=== PATIENT | female | born 1960 | race Caucasian/White ===

== ENCOUNTER → 2017-08-04 | Outpatient (CLI) | payer BC, OTHER ==
[~2017-08-04] MED LIST: CA C1TAB83 PO; CALC-913 PO; ESCI10TA PO; EST30C VG; IBUP-1773 PO; LANS30CA43 PO; MELO15TA39 PO; MULT-974 PO; RED CLOVER PO; SUMA100T2 PO; TOPI50TA37 PO
--- NOTE | 2017-08-04 19:45 | Diagnostic Imaging Report ---
Bilateral screening mammogram 2D views with tomosynthesis The current study was also evaluated with a Computer Aided Detection (CAD) system. Indication: Screening. No current complaints stated on the questionnaire. COMPARISON: 06/29/16. FINDINGS: The breasts are composed of heterogeneously dense parenchyma which may decrease mammographic sensitivity. No mass, architectural distortion or suspicious cluster of calcifications. Benign-appearing calcifications are noted. Allowing for technique and positional differences, no suspicious change is seen. IMPRESSION: No significant change. ACR BI-RADS Category 2: Benign findings. Result letter will be mailed to the patient. Note: At least 10% of breast cancer is not imaged by mammography. Dictated by: Dictated on workstation # [id number]
== END ==
LOC: RAD 09:00
PROVIDERS: ATTEND Obstetrics & Gynecology
DX: Z12.31 Encounter for screening mammogram for malignant neoplasm of breast (principal)
CPT/HCPCS: 77067

== ENCOUNTER → 2017-08-30 | Outpatient (CLI) | payer OTHER ==
--- NOTE | 2017-08-30 17:56 | Diagnostic Imaging Report ---
PROCEDURE: US Thyroid. TECHNIQUE: Multiple real-time grayscale images were obtained of the thyroid in various projections. INDICATION: Multinodular goiter. FINDINGS: The right thyroid lobe is 4.7 x 1.9 x 2.1 cm. The left lobe is 5.2 x 2.2 x 1.7 cm. There is a dominant inferior left thyroid lobe nodule measuring 1.9 x 1.3 x 1.4 cm. The right lobe demonstrates a 1.3 x 0.9 x 0.8 cm nodule inferiorly. These nodules demonstrate mild vascularity. The background thyroid parenchyma is heterogenous. IMPRESSION: Findings are suggestive of multinodular goiter with stable dominant nodule in the lower aspect of the left thyroid lobe measuring 1.9 cm. Dictated by: Dictated on workstation # [id number]
== END ==
LOC: RAD 11:37
PROVIDERS: ATTEND Otolaryngology Otolaryngology/Facial Plastic Surgery
DX: E04.9 Nontoxic goiter, unspecified (principal)
CPT/HCPCS: 76536

== ENCOUNTER → 2018-08-08 | Outpatient (CLI) | payer OTHER ==
--- NOTE | 2018-08-08 12:01 | Diagnostic Imaging Report ---
INDICATION: Routine screening. COMPARISON: Comparison is made with prior mammograms from 08/04/2017 and 06/29/2016. TECHNIQUE: 2D and 3D bilateral screening mammography was performed with computer-aided detection (CAD) system. FINDINGS: Both breasts are heterogeneously dense, limiting the sensitivity of mammography. The parenchymal pattern appears to be stable. No discrete mass or malignant appearing microcalcifications are seen. The axillae are unremarkable. IMPRESSION: No mammographic features suspicious for malignancy are identified. ACR BI-RADS Category 1: Negative. Result letter will be mailed to the patient. Note: At least 10% of breast cancer is not imaged by mammography. Dictated by: Dictated on workstation # [id number]
== END ==
LOC: RAD 09:46
PROVIDERS: ATTEND Obstetrics & Gynecology
DX: Z12.31 Encounter for screening mammogram for malignant neoplasm of breast (principal)
CPT/HCPCS: 77067

== ENCOUNTER → 2019-09-11 | Outpatient (CLI) | payer OTHER ==
--- NOTE | 2019-09-11 12:58 | Diagnostic Imaging Report ---
PROCEDURE: US Thyroid. TECHNIQUE: Multiple Real-time grayscale images were obtained of the thyroid in various projections. INDICATION: Multinodular goiter. COMPARISON: Correlation is made with the prior thyroid ultrasound from 08/30/2017. FINDINGS: The right lobe of the thyroid measures 5.5 x 1.7 x 1.8 cm and the left lobe measures 5.6 x 1.5 x 1.8 cm. The isthmus is 3 mm in thickness. Numerous bilateral thyroid nodules are again noted. The largest nodule on the right is in the lower pole measuring 1.3 x 0.7 x 1.0 cm. This is primarily cystic with a small mural nodular component. The overall size is stable but the nodule is more cystic on today's study. The dominant solid-appearing nodule in the lower pole of the left lobe measures 2.1 x 1.3 x 1.4 cm compared to approximately 1.9 x 1.3 x 1.4 cm on the prior study. The slight differences in measurement appear to correspond to slight differences in measurement technique. IMPRESSION: The bilateral thyroid nodules are overall stable in size when compared with the examination from 2 years earlier. Dictated by: Dictated on workstation # [id number]
== END ==
LOC: RAD 10:55
PROVIDERS: ATTEND Otolaryngology Otolaryngology/Facial Plastic Surgery
DX: E04.2 Nontoxic multinodular goiter (principal)
CPT/HCPCS: 76536

== ENCOUNTER → 2021-11-11 | Outpatient (CLI) | payer OTHER ==
--- NOTE | 2021-11-11 13:13 | Diagnostic Imaging Report ---
PROCEDURE: US Thyroid. TECHNIQUE: Multiple real-time grayscale images were obtained of the thyroid in various projections. INDICATION: Follow-up of multinodular goiter. Comparison with 09/11/2019. FINDINGS: The right lobe measures 4.8 x 2.2 x 2.1 cm. There are three nodules. The largest of which is predominantly anechoic with some mural thickening. This measures 1.2 x 0.9 x 1.2 cm. Two smaller heterogeneous nodules are present, largest measuring 7 x 4 x 8 mm. These are wider than tall. No significant calcification is seen. The left lobe measures 5.6 x 1.9 x 1.9 cm. There are two heterogeneous nodules with punctate calcifications. These are slightly hypoechoic compared with the thyroid nodule. They are well circumscribed. The largest measures 1.8 x 0.4 x 1.7 cm and is wider than tall. Slightly smaller one just superior to this measures 1.3 x 0.9 x 1.2 cm. These have a very similar appearance. There are two nodules within the isthmus. These are slightly hypoechoic and well circumscribed. They are both wider than tall, largest measures 1.5 x 0.8 x 1.5 cm. It is slightly hypoechoic. IMPRESSION: Multinodular thyroid. 1: The largest nodule in the left lower lobe measuring 1.8 x 1.4 x 1.7 cm, which is heterogeneous and slightly hypoechoic with punctate calcifications is considered TI-RADS 4. This has changed very little since 2019. 2. The largest nodule which is predominantly cystic in the right lower pole measuring 1.2 x 0.9 x 1.2 cm which is well circumscribed is considered TI-RADS 3 and also has changed very little. 3. The two nodules in the isthmus are oval, hypoechoic, and homogeneous without calcification and have not changed. TI-RADS 3. Dictated by: Dictated on workstation # [id number]
== END ==
LOC: RAD 10:42
PROVIDERS: ATTEND Otolaryngology Otolaryngology/Facial Plastic Surgery
DX: E04.2 Nontoxic multinodular goiter (principal)
CPT/HCPCS: 76536